=== PATIENT | female | born 1960 | race Caucasian/White ===

== ENCOUNTER 2018-10-31 09:45 | Day surgery (SDC) | payer MEDICARE, MEDICAID ==
[~2018-10-31] VITALS: Ht 160 cm; Wt 69.4 kg
[2018-10-31] MEDS ORDERED: MORPHINE 4 MG/ML INJ. SYRINGE IVP PRN ×3 (11:45)
[2018-10-31] MEDS ORDERED: LR 1,000 ML IV SCH (11:45)
[2018-10-31] MEDS ORDERED: METOCLOPRAMIDE HCL 10 MG/2 ML VIAL IVP PRN (11:45)
[2018-10-31] MEDS ORDERED: DEXAMETHASONE SOD PHOSPHATE 4 MG/ML VIAL ONE (12:15)
[2018-10-31] MEDS ORDERED: MIDAZOLAM HCL 5 MG/ML VIAL (VERSED) IV ONE (12:15)
[2018-10-31] MEDS ORDERED: ONDANSETRON HCL 4 MG/2 ML VIAL ONE (12:15)
[2018-10-31] MEDS ORDERED: LR 1,000 ML IV.SOLN IV ONE (12:15)
[2018-10-31] MEDS ORDERED: BACITRACIN ZINC 15 GM TOPICAL OINTMENT TP ONE (12:15)
[2018-10-31] MEDS ORDERED: PROPOFOL 200MG/ 20ML VIAL (DIPRIVAN) IV ONE (12:15)
[2018-10-31] MEDS ORDERED: fentaNYL CITRATE/PF 100 MCG/2 ML AMP ONE (12:15)
[2018-10-31] MEDS ORDERED: NS IRRIG SOLN 1000 ML IR ONE (12:15)
[2018-10-31] MEDS ORDERED: ACETAMINOPHEN/CODEINE 300 MG-30 MG TABLET PO ONE (12:15)
[2018-10-31] MEDS ORDERED: SEVOFLURANE 15 MIN GAS INH ONE (12:15)
[2018-10-31 12:51] VITALS: BP_SYST 128
== END 2018-10-31 13:30 | disposition home or self-care (01) ==
LOC: SMU 09:45 → SDS 09:45
PROVIDERS: ATTEND Otolaryngology Plastic Surgery within the Head & Neck
DX: D17.0 Benign lipomatous neoplasm of skin and subcutaneous tissue of head, face and neck (principal); Z88.8 Allergy status to other drugs, medicaments and biological substances
CPT/HCPCS: 21013; 88304; J1100; J2250; J2405; J2704; J3010; J7120; 88305

== ENCOUNTER 2019-09-24 16:37 | Emergency (ER) | payer MEDICARE, MEDICAID ==
[~2019-09-24] VITALS: Ht 162.6 cm; Wt 71.7 kg
[2019-09-24 16:37] VITALS: BP_SYST 164
--- NOTE | 2019-09-24 18:24 | NUR ---
CALLED FOR PT TO COME BACK TO ER #7, PT TOLD ADMITTING SHE WAS GOING TO LEAVE DUE TO WAITING TOO LONG.
== END 2019-09-24 18:24 | disposition left against medical advice (07) ==
LOC: SED 16:37
DX: E86.0 Dehydration (principal); Z53.21 Procedure and treatment not carried out due to patient leaving prior to being seen by health care provider

== ENCOUNTER 2019-09-25 07:56 | Emergency (ER) | payer MEDICARE, MEDICAID ==
[~2019-09-25] VITALS: Ht 162.6 cm; Wt 70.8 kg
[2019-09-25 08:00] VITALS: BP_SYST 164
--- NOTE | 2019-09-25 08:00 | NUR ---
RED BACK TO BED #6 AND TRIAGED. REPORT GIVEN TO STEPHANIE
[2019-09-25] MEDS ORDERED: NACL 0.9% 1,000 ML IV ONE (08:09)
--- NOTE | 2019-09-25 08:10 | NUR ---
Patient AAOx4 c/o of diarrhea for 9 days. Patient states she was started on Cipro on 09/16 and Vanco and Macrobid on 09/20. Patient states she has history of interstitial cystitis, hysterectomy, and x 2. Patient denies any nausea or vomiting. Patient denies any allergies. No signs or symptoms of acute distress noted.
--- NOTE | 2019-09-25 08:11 | NUR ---
ER Dr. Burgos at bedside examining patient.
--- NOTE | 2019-09-25 08:30 | NUR ---
# 20 gauge angiocath placed to RAC. Use of asceptic technique. Opsite placed over site. Blood return noted. Blood for lab drawn from site. Flushed with 10 cc of normal saline. No evidence of infiltration noted. Patient tolerated well.
[2019-09-25 08:42] LABS: BASOPHILS % (AUTO) 0.3 % (0.0-2.0); EOSINOPHILS # (AUTO) 0.3 K/uL (0.0-0.4); HEMATOCRIT 40.9 % (36-48); HEMOGLOBIN 13.6 g/dL (12.0-16.0); LYMPHOCYTES # (AUTO) 2.2 K/uL (1.0-5.5); MEAN CORPUSCULAR HEMOGLOBIN 30 pg (27-31); MEAN CORPUSCULAR HGB CONC 33 % (32-36); MEAN CORPUSCULAR VOLUME 89 fL (79.0-98.0); MONOCYTES # (AUTO) 0.5 K/uL (0.0-1.0); MONOCYTES % (AUTO) 6.5 % (1.7-9.3); NEUTROPHILS # (AUTO) 4.3 K/uL (1.8-7.7); NEUTROPHILS % (AUTO) 59.2 % (40.0-70.0); PLATELET COUNT (AUTO) 211 K/uL (130-430); RED BLOOD CELL COUNT(AUTO) 4.62 MIL/uL (4.2-6.2); RED CELL DISTRIBUTION WIDTH 13.9 % (9.0-15.0); WHITE BLOOD COUNT (AUTO) 7.2 K/uL (4.8-10.8)
[2019-09-25 08:56] LABS: ANION GAP 8 (5-15); CALCIUM 8.7 mg/dL (8.4-11.0); CHLORIDE 105 mmol/L (98-107); CREATININE 0.69 mg/dL (0.55-1.30); GLUCOSE 96 mg/dL (70-99); POTASSIUM 3.5 mmol/L (3.5-5.1); SODIUM SERUM 141 mmol/L (136-145); UREA NITROGEN, BLOOD 6 mg/dL (8-21)
[2019-09-25 08:57] LABS: GFR AFRICAN AMERICAN 113 mL/min (>90)
[2019-09-25 09:01] LABS: PROTHROMBIN TIME 10.3 SECS (9.5-12.5)
[2019-09-25 09:03] LABS: ALANINE AMINOTRANSFERASE 25 U/L (12-78); ALBUMIN < 0.6 g/dL (3.4-4.8); AMYLASE 36 U/L (0-100); ASPARTATE AMINOTRANSFERASE 20 U/L (10-37); LIPASE 1 U/L (73-393); TOTAL BILIRUBIN 0.5 mg/dL (0.0-1.0)
--- NOTE | 2019-09-25 09:30 | NUR ---
Patient ambulating to restroom. No signs of acute distress.
[2019-09-25 10:14] LABS: BILIRUBIN,URINE NEGATIVE (NEGATIVE); BLOOD, URINE 1+ (NEGATIVE); CLARITY/URINE CLEAR (CLEAR); COLOR,URINE YELLOW (YELLOW); GLUCOSE,URINE NEGATIVE (NEGATIVE); KETONES,URINE NEGATIVE (NEGATIVE); LEUKOCYTE ESTERASE ,URINE NEGATIVE (NEGATIVE); NITRITE, URINE NEGATIVE (NEGATIVE); PROTEIN URINE NEGATIVE (NEGATIVE); UROBILINOGEN,URINE 0.2 (0.2-1.0)
[2019-09-25 10:22] LABS: BACTERIA,URINE RARE /HPF (None Seen); RBC,URINE 0-3 /HPF (0-3); WBC,URINE 0-3 /HPF (0-3)
--- NOTE | 2019-09-25 11:17 | NUR ---
Patient's boyfriend at bedside.
--- NOTE | 2019-09-25 12:02 | NUR ---
Patient given written and verbal discharge instructions and verbalizes understanding. ER MD discussed with patient the results and treatment provided. Patient in stable condition. ID arm band removed. IV catheter removed intact and dressing applied, no active bleeding. Rx of Diflucan, Lomotil, Zofran, Tylenol with Codeine, and Flagyl given. Patient educated on pain management and to follow up with PMD. Pain Scale 0/10. Opportunity for questions provided and answered. Medication side effect fact sheet provided.
[2019-09-25 12:16] VITALS: BP_SYST 140
== END 2019-09-25 12:15 | disposition home or self-care (01) ==
LOC: SED 07:56
DX: K52.9 Noninfective gastroenteritis and colitis, unspecified (principal)
CPT/HCPCS: 36415; 71045; 80053; 81000; 82150; 82550; 83605; 83690; 84484; 85025; 85610; 85730; 87040; 93005; 99284; J7030

== ENCOUNTER 2020-02-08 10:31 | Emergency (ER) | payer MEDICARE, MEDICAID ==
[~2020-02-08] VITALS: Ht 162.6 cm; Wt 68.5 kg
[2020-02-08 10:31] VITALS: BP_SYST 164
--- NOTE | 2020-02-08 10:31 | NUR ---
BROUGHT BACK TO BED #7 AND TRIAGED. REPORT GIVEN TO MARY
--- NOTE | 2020-02-08 11:00 | NUR ---
Pt came to ER after spilling chlorine and vinegar on self while doing laundry. Pt states she has generalized cracking of skin and pins and needles feeling. No redness or rash detected, skin appears WNL, pt appears anxious and concerned over home laundry service changes.
--- NOTE | 2020-02-08 11:16 | NUR ---
ER at bedside examining patient.
[2020-02-08 12:11] LABS: BARBITURATE, URINE NEGATIVE (NEG <=200); BENZODIAZEPINE, URINE NEGATIVE (NEG <=150); CANNABINOID, URINE POSITIVE (NEG <=50); COCAINE, URINE NEGATIVE (NEG <=150); METHAMPHETAMINES SCREEN,URINE NEGATIVE (NEG <=500); OPIATE, URINE NEGATIVE (NEG <=100); PHENCYCLIDINE SCREEN,URINE NEGATIVE (NEG <=25); UR TRICYCLIC ANTIDEPRESSANTS NEGATIVE (NEG <=300); URINE AMPHETAMINE NEGATIVE (NEG <=500); URINE METHADONE NEGATIVE (NEG <=200); URINE OXYCODONE SCREEN NEGATIVE (NEG <=100); URINE PROPOXYPHENE SCREEN NEGATIVE (NEG <=300)
[2020-02-08 12:31] LABS: CALCIUM 8.8 mg/dL (8.4-11.0); CREATININE 0.6 mg/dL (0.55-1.30)
--- NOTE | 2020-02-08 12:55 | NUR ---
Poison controlled contacted, spoke with Floridalma regarding exposure. Pt cleared for discharge safely.
[2020-02-08] MEDS ORDERED: MAGNESIUM OXIDE 400 MG TABLET PO ONE (13:00)
[2020-02-08] MEDS ORDERED: POTASSIUM CHLORIDE 20 MEQ TAB.PRT.SR PO ONE (13:00)
[2020-02-08 13:05] VITALS: BP_SYST 130
--- NOTE | 2020-02-08 13:05 | NUR ---
Patient given written and verbal discharge instructions and verbalizes understanding. ER MD discussed with patient the results and treatment provided. Patient in stable condition. ID arm band removed. IV catheter removed intact and dressing applied, no active bleeding. Patient educated on pain management and to follow up with PMD. Pain Scale 0/10. Opportunity for questions provided and answered. Medication side effect fact sheet provided. Pt cleared by Poison Control, understands direction given.
[2020-02-08] MEDS ORDERED: POTASSIUM CHLORIDE 20 MEQ TAB.PRT.SR ONE (13:52)
[2020-02-10] MEDS ORDERED: LIP10 PO (08:58)
[2020-02-10] MEDS ORDERED: AMIT10TA6 PO (08:58)
== END 2020-02-08 13:05 | disposition home or self-care (01) ==
LOC: SED 10:31
DX: M54.5 Low back pain (principal); E87.6 Hypokalemia; Z77.098 Contact with and (suspected) exposure to other hazardous, chiefly nonmedicinal, chemicals
CPT/HCPCS: 36415; 80048; 80307; 81002; 99283

== ENCOUNTER 2021-03-20 07:35 | Emergency (ER) | payer OTHER, MEDICAID ==
[~2021-03-20] VITALS: Ht 162.6 cm; Wt 77.6 kg
[~2021-03-20 07:35] MED LIST: AMIT10TA6 PO; LIP10 PO
[2021-03-20 07:49] VITALS: BP_SYST 148
--- NOTE | 2021-03-20 07:53 | NUR ---
Patient to ER bed 2 to gown for evaluation. Side rails up. Report given to Carri CHENEY.
--- NOTE | 2021-03-20 08:05 | NUR ---
Pt. came in with c/o lower belly pain x 1 week, states drank some whole leaf aloe vera gell that was suppose to help with bladder issues and ever since then has had burning and cramping of stomach. denies N/V/D at this time; 1 episode of diarrhea last week after taking aloe vera
--- NOTE | 2021-03-20 08:09 | NUR ---
ER at bedside examining patient.
--- NOTE | 2021-03-20 08:16 | NUR ---
Patient transported to radiology via wheelchair, accompanied by staff.
[2021-03-20 08:53] LABS: BASOPHILS % (AUTO) 0.2 % (0.0-2.0); EOSINOPHILS # (AUTO) 0.1 K/uL (0.0-0.4); EOSINOPHILS % (AUTO) 1.5 % (0.0-4.0); HEMATOCRIT 41.1 % (36-48); HEMOGLOBIN 13.7 g/dL (12.0-16.0); LYMPHOCYTES # (AUTO) 1.5 K/uL (1.0-5.5); LYMPHOCYTES % (AUTO) 18.6 % (20.5-51.5); MEAN CORPUSCULAR HEMOGLOBIN 29 pg (27-31); MEAN CORPUSCULAR HGB CONC 33 % (32-36); MEAN CORPUSCULAR VOLUME 87 fL (79.0-98.0); MONOCYTES # (AUTO) 0.4 K/uL (0.0-1.0); MONOCYTES % (AUTO) 4.8 % (1.7-9.3); NEUTROPHILS # (AUTO) 6.2 K/uL (1.8-7.7); NEUTROPHILS % (AUTO) 74.9 % (40.0-70.0); PLATELET COUNT (AUTO) 220 K/uL (130-430); RED BLOOD CELL COUNT(AUTO) 4.73 MIL/uL (4.2-6.2); WHITE BLOOD COUNT (AUTO) 8.2 K/uL (4.8-10.8)
[2021-03-20 09:01] LABS: ANION GAP 6 (5-15); CALCIUM 8.2 mg/dL (8.4-11.0); CHLORIDE 108 mmol/L (98-107); CREATININE 0.77 mg/dL (0.55-1.30); GLUCOSE 104 mg/dL (70-99); POTASSIUM 3.1 mmol/L (3.5-5.1); SODIUM SERUM 143 mmol/L (136-145); UREA NITROGEN, BLOOD 10 mg/dL (8-21)
[2021-03-20 09:04] LABS: GFR AFRICAN AMERICAN 99 mL/min (>90); INR 1.1 (0.8-1.2); PROTHROMBIN TIME 11.4 SECS (9.5-12.5)
[2021-03-20 09:05] LABS: ALANINE AMINOTRANSFERASE 25 U/L (12-78); ALBUMIN 4.2 g/dL (3.4-4.8); AMYLASE 37 U/L (0-100); ASPARTATE AMINOTRANSFERASE 17 U/L (10-37); C-REACTIVE PROTEIN QUANT < 0.2 mg/dL (0-0.5); LACTATE DEHYDROGENASE 145 U/L (81-234); LIPASE 105 U/L (73-393); TOTAL BILIRUBIN 0.5 mg/dL (0.0-1.0)
[2021-03-20 09:13] LABS: BILIRUBIN,URINE NEGATIVE (NEGATIVE); BLOOD, URINE 2+ (NEGATIVE); CLARITY/URINE CLEAR (CLEAR); COLOR,URINE YELLOW (YELLOW); GLUCOSE,URINE NEGATIVE (NEGATIVE); KETONES,URINE NEGATIVE (NEGATIVE); LEUKOCYTE ESTERASE ,URINE NEGATIVE (NEGATIVE); NITRITE, URINE NEGATIVE (NEGATIVE); PROTEIN URINE NEGATIVE (NEGATIVE); UROBILINOGEN,URINE 0.2 (0.2-1.0)
[2021-03-20] MEDS ORDERED: HYDR-3917 PO (09:28)
[2021-03-20] MEDS ORDERED: AMOX-423 PO (09:28)
[2021-03-20 09:32] LABS: WBC,URINE NONE SEEN /HPF (0-3)
[2021-03-20 09:33] LABS: BACTERIA,URINE None Seen /HPF (None Seen)
--- NOTE | 2021-03-20 09:57 | NUR ---
Patient given written and verbal discharge instructions and verbalizes understanding. Dr. Scott discussed with patient the results and treatment provided. Patient in stable condition. ID arm band removed. Rx of Augmentin and Liberty given. Patient educated on pain management and to follow up with PMD. Pain Scale 3. Opportunity for questions provided and answered. Medication side effect fact sheet provided.
[2021-03-20 09:58] VITALS: BP_SYST 137
== END 2021-03-20 09:57 | disposition home or self-care (01) ==
LOC: SED 07:35
DX: R10.84 Generalized abdominal pain (principal); R11.10 Vomiting, unspecified; Z79.899 Other long term (current) drug therapy
CPT/HCPCS: 36415; 76376; 80053; 81000; 82150; 83605; 83615; 83690; 84484; 85025; 85610-TC; 85730-TC; 86140; 99284

== ENCOUNTER 2021-03-20 17:08 | Emergency (ER) | payer OTHER, MEDICAID ==
[~2021-03-20] VITALS: Ht 162.6 cm; Wt 77.1 kg
[~2021-03-20 17:08] MED LIST changes: +AMOX-423 PO; +HYDR-3917 PO
--- NOTE | 2021-03-20 17:20 | NUR ---
ER in triage to see patient.
--- NOTE | 2021-03-20 17:25 | NUR ---
Patient to ER bed 8 to gown for evaluation. Side rails up. Report given to [].
[2021-03-20 17:26] VITALS: BP_SYST 191
[2021-03-20] MEDS ORDERED: MAG HYDROX/AL HYDROX/SIMETH 30 ML, DICYCLOMINE HCL 20 MG, LIDOCAINE VISCOUS 2% 15ML (PO... PO ONE ×3 (17:30)
--- NOTE | 2021-03-20 17:30 | NUR ---
ER at bedside examining patient.
--- NOTE | 2021-03-20 17:44 | NUR ---
Patient transported to radiology via WC, accompanied by rad staff.
--- NOTE | 2021-03-20 17:49 | NUR ---
Returned from radiology, back to [facility].
--- NOTE | 2021-03-20 18:00 | NUR ---
pt. had boyfriend bring her in with concerns about still having abd pain, was released earlier today but concerned no definitive dx. and worried about meds she is taking
[2021-03-20 18:18] LABS: ANION GAP 13 (5-15); CALCIUM 8.6 mg/dL (8.4-11.0); CHLORIDE 107 mmol/L (98-107); CREATININE 0.89 mg/dL (0.55-1.30); GLUCOSE 104 mg/dL (70-99); POTASSIUM 3.3 mmol/L (3.5-5.1); SODIUM SERUM 144 mmol/L (136-145); UREA NITROGEN, BLOOD 8 mg/dL (8-21)
[2021-03-20 18:19] LABS: GFR AFRICAN AMERICAN 83 mL/min (>90)
[2021-03-20 18:25] LABS: BILIRUBIN,URINE NEGATIVE (NEGATIVE); BLOOD, URINE 3+ (NEGATIVE); CLARITY/URINE CLEAR (CLEAR); COLOR,URINE YELLOW (YELLOW); GLUCOSE,URINE NEGATIVE (NEGATIVE); KETONES,URINE 1+ (NEGATIVE); LEUKOCYTE ESTERASE ,URINE NEGATIVE (NEGATIVE); NITRITE, URINE NEGATIVE (NEGATIVE); PROTEIN URINE NEGATIVE (NEGATIVE); UROBILINOGEN,URINE 0.2 (0.2-1.0)
[2021-03-20 18:25] LABS: ALANINE AMINOTRANSFERASE 21 U/L (12-78); ALBUMIN 4.2 g/dL (3.4-4.8); AMYLASE 36 U/L (0-100); ASPARTATE AMINOTRANSFERASE 16 U/L (10-37); LACTATE DEHYDROGENASE 143 U/L (81-234); LIPASE 102 U/L (73-393); TOTAL BILIRUBIN 0.4 mg/dL (0.0-1.0)
[2021-03-20 18:30] LABS: BASOPHILS % (AUTO) 0.3 % (0.0-2.0); C-REACTIVE PROTEIN QUANT < 0.2 mg/dL (0-0.5); EOSINOPHILS # (AUTO) 0.1 K/uL (0.0-0.4); EOSINOPHILS % (AUTO) 1.1 % (0.0-4.0); HEMATOCRIT 40.1 % (36-48); HEMOGLOBIN 13.7 g/dL (12.0-16.0); LYMPHOCYTES # (AUTO) 2.4 K/uL (1.0-5.5); LYMPHOCYTES % (AUTO) 32.1 % (20.5-51.5); MEAN CORPUSCULAR HEMOGLOBIN 30 pg (27-31); MEAN CORPUSCULAR HGB CONC 34 % (32-36); MEAN CORPUSCULAR VOLUME 87 fL (79.0-98.0); MONOCYTES # (AUTO) 0.4 K/uL (0.0-1.0); MONOCYTES % (AUTO) 5.7 % (1.7-9.3); NEUTROPHILS # (AUTO) 4.6 K/uL (1.8-7.7); NEUTROPHILS % (AUTO) 60.8 % (40.0-70.0); PLATELET COUNT (AUTO) 220 K/uL (130-430); RED BLOOD CELL COUNT(AUTO) 4.63 MIL/uL (4.2-6.2); RED CELL DISTRIBUTION WIDTH 13.9 % (9.0-15.0); WHITE BLOOD COUNT (AUTO) 7.6 K/uL (4.8-10.8)
[2021-03-20 18:36] LABS: BACTERIA,URINE RARE /HPF (None Seen); WBC,URINE 0-3 /HPF (0-3)
--- NOTE | 2021-03-20 19:00 | NUR ---
Patient given written and verbal discharge instructions and verbalizes understanding. Dr. Scott discussed with patient the results and treatment provided. Patient in stable condition. ID arm band removed. Patient educated on pain management and to follow up with PMD. Pain Scale 3, at times. Opportunity for questions provided and answered. Medication side effect fact sheet provided.
[2021-03-20 19:01] VITALS: BP_SYST 151
== END 2021-03-20 19:01 | disposition home or self-care (01) ==
LOC: SED 17:08
DX: R10.12 Left upper quadrant pain (principal); Z79.899 Other long term (current) drug therapy
CPT/HCPCS: 36415; 74018; 80053; 81000; 82150; 83605; 83615; 83690; 84484; 85025; 86140; 99284; J2001